=== PATIENT | female | born 1975 | race African-American/Black ===

== ENCOUNTER 2016-09-22 16:08 | Emergency (ER) | payer MEDICAID ==
--- NOTE | 2016-09-23 14:40 | ER ---
ADMIT: 09/22/2016 RM/LOC: ER [facility] MR#: [id number] [address] [facility] [address], [place] [id number] [address] [place] [address] Emergency Room Report SEX: F AGE: 40 : 1975 DATE: 09/22/2016 ADDENDUM: This patient comes to the ER because she is having chest pain and shortness of breath. She states she has been under a lot of stress. Her son was recently sent to [facility] and her father was run over where he was killed. She started developing chest pain over the last 4 days. She does have a history of having DVTs and at one time because of a DVT in her arm, she had to take blood thinners. She also had a seizure yesterday. She has a seizure disorder, but she has not been taking her Dilantin because she has run out. Her is across the road dedicated intermodal truck driver, so she has not been around her normal physician for a month. She denies any difficulty with her appetite. She has known history of having anemia because of having fibroid tumors and knows that she needs to have a hysterectomy. She has not been taking her iron as she should either. On physical exam, she has pain on the right side of her chest, I am able to reproduce the pain and she states it goes into her back. I cannot reproduce it in her back. Her chest x-ray was negative for anything acute. Her hemoglobin was 8.1, white count was normal. AST, ALT, and lipase were normal and her cardiac enzymes were also normal. CT of her chest was negative for PE. DIAGNOSES: 1. Chest pain. 2. History of deep venous thrombosis. 3. Seizure disorder. 4. Anxiety. 5. Anemia. I did consult with Dr. Pinon concerning treatment of this patient. I refilled her prescription for gabapentin and Dilantin and also gave her 10 tablets of 5 mg Valium. She is to follow up with her primary when she is on her way home and she is to take her iron. Please see my T-sheet. PINEDA Hazel / Jesús Avelar MD / modl JOB #: [id number] CC: Bo Shirley MD, Attending Physician
== END 2016-09-22 20:30 | disposition home or self-care (01) ==
LOC: ER 16:08
DX: R07.9 Chest pain, unspecified (principal); G40.909 Epilepsy, unspecified, not intractable, without status epilepticus; F41.9 Anxiety disorder, unspecified; D64.9 Anemia, unspecified; F17.210 Nicotine dependence, cigarettes, uncomplicated; Z79.01 Long term (current) use of anticoagulants; Z88.8 Allergy status to other drugs, medicaments and biological substances; Z79.899 Other long term (current) drug therapy; Z86.718 Personal history of other venous thrombosis and embolism